=== PATIENT | male | born 1960 | race Caucasian/White ===

== ENCOUNTER → 2021-01-10 | Outpatient (CLI) | payer OTHER ==
[~2021-01-10] VITALS: Ht 177.8 cm; Wt 103.4 kg
[2021-01-10] VITALS (13 sets, daily range): BP systolic 116–170; BP diastolic 59–106
[~2021-01-10] MED LIST: ADULT LOW DOSE81 MG PO; ASPIRIN EC81 M1 PO; ASPIRIN325 PO; CARVEDILOL6.25 MG PO; CITALOPRAM HBR40 MG PO; CRESTOR20 MG PO; LISINOPRIL20 MG PO; LOSARTAN-HCTZ1 EAC2 PO; NIASPAN 500 MG500 M1 PO; NITROSTAT0.4 MG SL; ONE DAILY FOR1 EACH PO; PLAVIX 75 MG TA75 MG PO; ZYRTEC10 M5 PO
[2021-01-10 09:09] LABS: HEMATOCRIT 42.5 % (42.0-52.0); HEMOGLOBIN 15.1 gm/dL (14.0-18.0); MCH 33.2 pg (26.0-34.0); MCHC 35.5 g/dL (28.0-37.0); MCV 93.7 fL (80.0-100.0); RBC 4.54 mil/uL (4.50-6.00); RDW-CV 13.5 % (10.5-14.5); WBC 9.8 thou/uL (4.0-11.0)
--- NOTE | 2021-01-10 09:32 | EKG ---
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 01/10/21 0931 0855 Zacarias Coates MD, [facility] /EPI
[2021-01-10 09:36] LABS: APTT 29.1 Seconds (25.0-31.3); PROTIME 10.3 Seconds (9.20-11.50)
[2021-01-10 09:38] LABS: ALBUMIN 4.1 g/dL (3.4-5.0); ALKALINE PHOSPHATASE 80 U/L (46-116); ANION GAP 8 mmol/L (7-16); BUN 14 mg/dL (7-18); CALCIUM 9.3 mg/dL (8.5-10.1); CHLORIDE 104 mmol/L (98-107); CHOLESTEROL 125 mg/dL (<200); CO2 29 mmol/L (21-32); GLUCOSE 102 mg/dL (70-99); HDL CHOLESTEROL 31 mg/dL (>40); LDL CHOLESTEROL 66 mg/dL (<100); SGOT 12 U/L (15-37); SGPT 23 U/L (30-65); SODIUM 141 mmol/L (136-145); TOTAL BILIRUBIN 0.4 mg/dL (<0.1-1.0); TOTAL PROTEIN 7.7 g/dL (6.4-8.2); TRIGLYCERIDE 143 mg/dL (<150); VLDL 29 mg/dL (<40)
[2021-01-10 09:41] LABS: SERUM ASSESSMENT Clear
--- NOTE | 2021-01-10 09:48 | H ---
[place] [address] HISTORY AND PHYSICAL Name: OSCARJOSEMANUELKETANSYLVIA Room: [facility] JonMing#: [id number] Admission: 01/10/21 Attend Phys: Zacarias Coates MD, F Discharge: Date of : 56 Report #: [id number] THIS REPORT FOR: cc: [place] - No family physician/PCP FAM - No family physician/PCP Zacarias Coates MD [facility] ~ DATE OF SERVICE: 01/10/2021 PREOPERATIVE HISTORY AND PHYSICAL HISTORY OF PRESENT ILLNESS: The patient is a 60-year-old white male who was brought to the outpatient department to undergo cardiac catheterization. The patient initially presented in 2008 with shortness of breath and fatigue. He was found to have coronary artery disease and Dr. Lewis placed a coronary stent. He was found to have another stenosis and a year later had another coronary stent placed. He has done well since that time. His last nuclear stress test in 2015 showed no evidence of ischemia. Echocardiogram in 2009 showed normal ejection fraction. I actually saw him in the clinic on 12/01 for routine followup. He denied any chest pain, shortness of breath, palpitations, syncope, peripheral edema. However, because of his occupation and history of coronary artery disease, I have recommended a stress echocardiogram that was performed in my office on 12/26. He walked for 9-1/2 minutes and complained of shortness of breath. He was noted to have upsloping ST segment depression of 1.5 mm. Resting images show an ejection fraction of 55%. During the stress, ejection fraction increased to 60%, although there was hypokinesis noted of the lateral wall. This was felt to be consistent with ischemia. Because of his high risk profession, coronary artery disease and abnormal stress echocardiogram, I recommended cardiac catheterization. He denied any recent fever, cough, bleeding. PAST MEDICAL HISTORY: He has had previous shoulder surgery, knee surgery, hernia repair, hypertension, hyperlipidemia. MEDICATIONS: Include aspirin, Celexa, losartan, Crestor. ALLERGIES: HE HAS PREVIOUS INTOLERANCE TO PENICILLIN AND KEFLEX. FAMILY HISTORY: His mom had stents. SOCIAL HISTORY: He is . He and his live in [place], [place]. He is retired from the . 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 Smokes a pack of cigarettes a day. No alcohol abuse. REVIEW OF SYSTEMS: No history of stroke, asthma, liver disease, kidney disease, cancer, psychiatric illness, chronic skin condition. [place] [address] HISTORY AND PHYSICAL Name: SYLVIA EASTMAN Room: [facility]#: [id number] Admission: 01/10/21 Attend Phys: Zacarias Coates MD, F Discharge: Date of : 56 Report #: [id number] screening done that showed no significant carotid stenosis. PHYSICAL EXAMINATION: GENERAL: Middle-aged male, appeared in no distress. VITAL SIGNS: He has blood pressure of 130/80, pulse is 80. HEENT: He was anicteric. Conjunctivae pink. Mucous membranes moist. NECK: Veins not distended. No carotid bruits. Neck is supple. CHEST: Clear to auscultation. CARDIAC: Regular rate and rhythm. ABDOMEN: Soft. EXTREMITIES: Had no edema. Posterior tibial pulse 2+ bilaterally. SKIN: Cool and dry. NEUROLOGIC: Nonfocal. DIAGNOSTIC DATA: ECG showed a sinus rhythm, nonspecific ST segment changes. IMPRESSION AND RECOMMENDATIONS: 1. Coronary artery disease. Previous stents. Abnormal stress echocardiogram. Recommend repeat cardiac catheterization. If stenosis is noted, I would consider stenting. 2. Hypertension. The patient is on an ARB and diuretic. 3. Hyperlipidemia. The patient is on a statin drug. 4. Tobacco abuse. Recommended he attempt to stop smoking. <ELECTRONICALLY SIGNED> By: Zacarias Coates MD, FACC 01/10/21 0948 0817 [id number] Coates MD, FACC /nt
--- NOTE | 2021-01-10 13:45 | CARD ---
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 Procedure Narrative The patient was brought electively to the Cardiac Catheterization Laboratory and was prepped and draped in a sterile manner. The right wrist was infiltrated with 2% Lidocaine subcutaneous anesthesia. IV conscious sedation was used throughout procedure with appropriate monitoring and was performed in the presence of a registered nurse who was an independent trained observer other than the physician performing the procedure. A 6 fr Slender glide sheath was inserted into the right radial artery. Coronary [place] [address] CARDIAC CATH REPORT Name: SYLVIA EASTMAN Room: [facility]#: [id number] Admission: 01/10/21 Attend Phys: Zacarias Coates MD, F Discharge: Date of : 56 Report #: [id number] using coronary diagnostic catheters. The right coronary system was accessed and visualized with a Diagnostic 6 Fr JR 4 catheter. The left coronary system was accessed and visualized with a Diagnostic 6 Fr JL 4 catheter. The left ventricle was accessed and visualized with a Diagnostic 6 Fr Pigtail catheter. Left ventricular/Aortic Valve gradient assessed via catheter pullback. Left ventriculogram was performed in SIMENTAL projection. Closure device was deployed with a 6 Fr vascband. The patient tolerated the procedure well and there were no complications associated with the procedure. There was no hematoma. Intraoperative Conscious Sedation Sedation start time: 09:52 Case end Time: 10:14 Versed 2.0 mg Fluoro Time: 3.6 minutes Dose: DAP 99403 cGycm2 1090 mGy Contrast Type and Amount: Visipaque 95 ml Coronary Angiography The patient's coronary anatomy is left dominant. Diagnostic Cath Left Main 0% stenosis LAD Stent in proximal LAD had 30% retenosis Circumflex 30% mid and 30% distal stenosis Right Coronary small nondominant artery that had a 90% proximal stenosis and was totally occluded distally and filled by retrograde collaterals from the LAD. Ramus small vessel with 70% ostial stenosis Left Ventriculography The left ventricle is normal in size with normal contractility. The left ventricular ejection fraction is estimated to be 60-65%. Left ventricular wall motion abnormalities are not present. There is no mitral insufficiency. Hemodynamics The aortic pressure is 154/82 mmHg with a mean of 113 mmHg. The left ventricular pressure is 153/4 mmHg with a mean of mmHg. The left ventricular end diastolic pressure is 16 mmHg. There was no gradient across the aortic valve upon pullback. Pullback from the left ventricle to the aorta revealed no gradient across [place] [address] CARDIAC CATH REPORT Name: SYLVIA EASTMAN Room: [facility]#: [id number] Admission: 01/10/21 Attend Phys: Zacarias Coates MD, F Discharge: Date of : 56 Report #: [id number] Conclusion 1. no restenosis of the stent in the proximal LAD 2. 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 LVEF 60-65% Recommendations Smoking Cessation Aggressive Medical Therapy <ELECTRONICALLY SIGNED> By: Zacarias Coates MD, [facility] 01/10/21 1344 1344 [id number] Coates MD, FACC /INF
== END | disposition home or self-care (01) ==
LOC: M.CL 07:49
PROVIDERS: ATTEND Internal Medicine Cardiovascular Disease
DX: R94.39 Abnormal result of other cardiovascular function study (principal); I25.10 Atherosclerotic heart disease of native coronary artery without angina pectoris; I10 Essential (primary) hypertension; E78.00 Pure hypercholesterolemia, unspecified; E78.2 Mixed hyperlipidemia; F32.9 Major depressive disorder, single episode, unspecified; G47.33 Obstructive sleep apnea (adult) (pediatric); F17.210 Nicotine dependence, cigarettes, uncomplicated; Z98.890 Other specified postprocedural states; Z79.899 Other long term (current) drug therapy; Z88.0 Allergy status to penicillin; Z88.2 Allergy status to sulfonamides